=== PATIENT | male | born 1985 | race Hispanic/Latino ===

== ENCOUNTER 2022-05-16 21:03 | Emergency (ER) | payer OTHER ==
[~2022-05-16] VITALS: Ht 170.2 cm; Wt 105.2 kg
[2022-05-16] MEDS ORDERED: KETOROLAC 30MG VIAL (30MG/ML) ONE (22:21)
[2022-05-16] MEDS ORDERED: KETOROLAC 15MG/ML VIAL (15MG/ML) IV ONE (22:30)
[2022-05-16 23:37] VITALS: BP 128/74
== END 2022-05-16 23:43 | disposition home or self-care (01) ==
LOC: EDH 21:03
DX: S62.367A Nondisplaced fracture of neck of fifth metacarpal bone, left hand, initial encounter for closed fracture (principal); W18.39XA Other fall on same level, initial encounter; Y93.89 Activity, other specified; Y92.89 Other specified places as the place of occurrence of the external cause; Y99.8 Other external cause status
CPT/HCPCS: 99283; 96374; 73130; J1885